=== PATIENT | female | born 1985 | race American Indian/Alaskan Native ===

== ENCOUNTER 2019-06-12 13:27 | Emergency (ER) | payer MEDICAID, OTHER ==
[2019-06-12 13:34] VITALS: BP 123/86
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
== END 2019-06-12 15:00 | disposition home or self-care (01) ==
LOC: ED 13:27
DX: S02.5XXA Fracture of tooth (traumatic), initial encounter for closed fracture (principal); K06.8 Other specified disorders of gingiva and edentulous alveolar ridge; Z79.899 Other long term (current) drug therapy; Y04.8XXA Assault by other bodily force, initial encounter; Y93.89 Activity, other specified; Y92.89 Other specified places as the place of occurrence of the external cause; Y99.8 Other external cause status
CPT/HCPCS: 70150; 99283

== ENCOUNTER 2021-06-23 19:34 | Outpatient (CLI) | payer MEDICAID ==
[2021-06-23 20:11] VITALS: BP 113/63
== END 2021-06-23 22:05 | disposition home or self-care (01) ==
LOC: TRG 19:34 → APU 19:36 → TRG 22:05
PROVIDERS: ATTEND Obstetrics & Gynecology
DX: Z34.93 Encounter for supervision of normal pregnancy, unspecified, third trimester (principal); Z3A.38 38 weeks gestation of pregnancy
CPT/HCPCS: 36415; 59025; 84112

== ENCOUNTER 2021-06-26 09:54 | Outpatient (CLI) | payer MEDICAID ==
[2021-06-26 10:08] VITALS: BP 128/68
[2021-06-26] MEDS ORDERED: BUTORPHANOL 2 MG/1 ML INJ IV STA (11:05)
[2021-06-26] MEDS: LACTATED RINGERS 1,000 ML IV SCH ×2 (11:38→12:31)
[2021-06-26 12:03] LABS: Bilirubin,Urine NEG (Negative); Blood,Urine NEG (Negative); Color,Urine Yellow (Yellow)
[2021-06-26 12:04] LABS: Mucus,Urine FEW /HPF
--- NOTE | 2021-06-26 14:19 | Ultrasound Report ---
US OB BPP wo non-stress INDICATION: Pt reports leaking fluid for past two days. TECHNIQUE: Transabdominal. COMPARISON: None available. FINDINGS: There is a single intrauterine . Heart Rate: 119 beats per minute. Position: cephalic. Amniotic Fluid Volume: normal Amniotic Fluid Index (ELENA) in cm : 11.5. Biophysical Profile: breathing movements: 0 movements:2 posture and tone:2 Qualitative amniotic fluid volume: 2 IMPRESSION: 1. Biophysical profile 6 of 8, no breathing is identified. Signer Name: Gautam Barger MD Signed: 06/26/2021 2:14 PM Workstation Name: [id number]
--- NOTE | 2021-06-26 14:25 | Ultrasound Report ---
ULTRASOUND OBSTETRIC LIMITED INDICATION / CLINICAL INFORMATION: Pt reports leaking since yesterday. TECHNIQUE: Transabdominal ultrasound imaging. COMPARISON: None available. FINDINGS: HEART RATE (beats per minute): 119 AMNIOTIC FLUID INDEX (cm) = 11.5 PRESENTATION: Cephalic. ADDITIONAL FINDINGS: The placenta is fundal/left lateral IMPRESSION: Normal ELENA measuring 11.5 Signer Name: Huey Blackman Jr, MD Signed: 06/26/2021 2:20 PM Workstation Name: [id number]
== END 2021-06-26 16:19 | disposition left against medical advice (07) ==
LOC: TRG 09:54 → APU 09:55 → TRG 16:19
PROVIDERS: ATTEND Obstetrics & Gynecology
DX: O47.1 False labor at or after 37 completed weeks of gestation (principal); Z3A.39 39 weeks gestation of pregnancy
CPT/HCPCS: 36415; 59025; 76815; 76819; 81001; 84112; 87086; 96361; 96365; 96366; 96367; J0595; J0690; J7120; 96360

== ENCOUNTER 2021-06-30 09:16 | Inpatient (IN) | payer MEDICAID ==
[2021-06-30] MEDS ORDERED: BUTORPHANOL 2 MG/1 ML INJ IV PRN (11:00)
[2021-06-30] MEDS ORDERED: LIDOCAINE (2%) 20 MG/1 ML VIAL 20 ML MDV INFILTRATI SCH (11:00)
[2021-06-30] MEDS ORDERED: miSOPROStol 200 MCG TAB PR PRN (11:00)
[2021-06-30] MEDS ORDERED: MINERAL OIL 30 ML ORAL LIQD PO PRN (11:00)
[2021-06-30] MEDS ORDERED: OXYTOCIN 10 UNIT/1 ML INJ IM PRN (11:00)
[2021-06-30] MEDS ORDERED: NALOXONE 0.4 MG/1 ML INJ IV PRN (11:00)
[2021-06-30] MEDS ORDERED: ONDANSETRON 4 MG/2 ML INJ IV PRN (11:00)
[2021-06-30] MEDS ORDERED: OXYTOCIN DRIP 30 UNITS/500 ML BAG IV SCH ×2 (11:00)
[2021-06-30] MEDS ORDERED: LOPERAMIDE 2 MG CAP PO PRN (11:00)
[2021-06-30] MEDS ORDERED: TERBUTALINE 1 MG/1 ML INJ SUB-Q PRN (11:00)
[2021-06-30] MEDS ORDERED: ePHEDrine SULFATE 50 MG/1 ML INJ IV PRN (11:00)
[2021-06-30] MEDS ORDERED: CARBOPROST TROMETHAMINE 250 MCG/1 ML INJ IM PRN (11:00)
[2021-06-30] MEDS ORDERED: METHYLERGONOVINE MALEATE 0.2 MG/ML VIAL IM PRN (11:00)
--- NOTE | 2021-06-30 11:03 | History and Physical Report ---
History of Present Illness Date of examination: 06/30/21 Date of admission: 06/30/2021 Chief complaint: Labor Pains History of present illness: Early entry to care, course complicated by N&V, non-compliance with visits, and a Hx of Cocaine, THC, and Tobacco Use, Co-managed with [facility]. Past History Past Medical History: no pertinent history Past Surgical History: no surgical history Family/Genetic History: none Social history: single, smoking (Hx of Polysubstance Abuse) - Obstetrical History Expected Date of Delivery: 07/02/21 Actual Gestation: 39 Week(s) 5 Day(s) : 12 Para: 2 Hx # Term Pregnancies: 2 Spontaneous Abortions: 4 Induced : 4 Number of Living Children: 2 #1 Gender: Female year: 2,[birth year] Birthweight: 2.948 kg Method of Delivery: Vaginal Gestational age at delivery: 40 #2 Gender: Female year: 2,[birth year] Birthweight: 2.778 kg Method of Delivery: Vaginal Gestational age at delivery: 40 Medications and Allergies Allergies Allergy/AdvReac Type Severity Reaction Status Date / Time No Known Allergies Allergy Verified 02/28/16 09:52 Home Medications Medication Instructions Recorded Confirmed Last Taken Type No Known Home Medications [No 06/26/21 06/26/21 Unknown History Reported Home Medications] Active Meds: Active Medications Carboprost Tromethamine (Carboprost Tromethamine 250 Mcg/1 Ml Inj) 250 mcg IM ONCE PRN PRN Reason: Uterine Bleeding Ephedrine Sulfate (Ephedrine Sulfate 50 Mg/1 Ml Inj) 10 mg IV Q2M PRN PRN Reason: Hypotension Oxytocin/Sodium Chloride (Pitocin/Ns 30 Unit/500ml) 30 units in 500 mls @ 2 mls/hr IV TITR YUSRA; Protocol Lactated Ringer's (Lactated Ringers) 1,000 mls @ 125 mls/hr IV DIRECT YUSRA Oxytocin/Sodium Chloride (Pitocin/Ns 30 Unit/500ml) 30 units in 500 mls @ 40 mls/hr IV TITR YUSRA; Protocol Loperamide HCl (Loperamide 2 Mg Cap) 2 mg PO ONCE PRN PRN Reason: give with Hemabate Mineral Oil (Mineral Oil 30 Ml Oral Liqd) 30 ml PO QHS PRN PRN Reason: Constipation Oxytocin (Oxytocin 10 Unit/1 Ml Inj) 10 unit IM ONCE PRN PRN Reason: Uterine Bleeding Terbutaline Sulfate (Terbutaline 1 Mg/1 Ml Inj) 0.25 mg SUB-Q ONCE PRN PRN Reason: Hyperstimulation/Hypertonicity Review of Systems All systems: negative - Vital Signs Vital signs: Vital Signs Pulse Pulse Ox 97 H 99 06/30/21 09:50 06/30/21 09:50 Temp Pulse Resp BP Pulse Ox 98.6 F 91 H 18 133/82 99 06/30/21 09:51 06/30/21 10:55 06/30/21 09:51 06/30/21 09:51 06/30/21 10:55 - Physical Exam Breasts: Positive: normal Cardiovascular: Regular rate Lungs: Positive: Clear to auscultation, Normal air movement Abdomen: Positive: normal appearance, soft, normal bowel sounds Genitourinary (Female): Positive: normal external genitalia, normal perenium Vagina: Positive: normal moisture Uterus: Positive: enlarged Anus/Rectum: Positive: normal perianal skin - Obstetrical FHR: category 1 Uterine Contraction Monitor Mode: External Cervical Dilatation: 3 Cervical Effacement Percentage: 60 station: -3 Uterine Contraction Pattern: Regular Uterine Tone Measurement Phase: Resting Uterine Contraction Intensity: Moderate Results All other labs normal. Assessment and Plan A: IUP @ 39 5/7 Weeks Category I Tracing Early Labor Maternal Obesity Hx of Polysubtance Abuse GBS Negative P: Admit to L&D per Routine Orders UDS Pitocin Augmentation
[2021-06-30 12:38] LABS: Hematocrit 32.8 % (30.3-42.9); Hemoglobin 10.7 gm/dl (10.1-14.3); Mean Corpuscular HGB Conc 33 % (30-34); Mean Corpuscular Volume 92 fl (79-97); Platelet Count 209 K/mm3 (140-440); Red Blood Count 3.55 M/mm3 (3.65-5.03); Red Cell Distribution Width 14.8 % (13.2-15.2)
[2021-06-30 12:48] LABS: Amphetamine Screen,Urine Negative; Benzodiazepines Screen,Urine Negative; Cocaine Screen,Urine Negative; Methadone Screen,Urine Negative; Opiate Screen,Urine Negative
[2021-06-30] MEDS: LACTATED RINGERS 1,000 ML IV SCH ×2 (13:39→15:47)
[2021-06-30 13:47] LABS: Cannabinoid Screen,Urine Positive
[2021-06-30] MEDS ORDERED: NALOXONE 2 MG/2 ML INJ IV PRN (15:00)
[2021-06-30] MEDS ORDERED: fentaNYL-BUPIV 2 MCG/ML-0.125% 200 MCG/100 ML BAG EPIDURAL SCH (15:00)
--- NOTE | 2021-06-30 15:51 | Anesthesia Consultation ---
Anesthesia Consult and Med Hx Date of service: 06/30/21 - Airway Anesthetic Teeth Evaluation: Poor ROM Head & Neck: Adequate Mental/Hyoid Distance: Adequate Mallampati Class: Class II Intubation Access Assessment: Probably Good - Pulmonary Exam CTA: Yes - Cardiac Exam Cardiac Exam: RRR - Pre-Operative Health Status ASA Pre-Surgery Classification: ASA2 Proposed Anesthetic Plan: Epidural - Pulmonary Hx Smoking: No Hx Asthma: No Hx Respiratory Symptoms: No SOB: No COPD: No Home Oxygen Therapy: No Hx Pneumonia: No Hx Sleep Apnea: No - Cardiovascular System Hx Hypertension: Yes (GHTN 2014) Hx Coronary Artery Disease: No Hx Heart Attack/AMI: No Hx Angina: No Hx Percutaneous Transluminal Coronary Angioplasty (PTCA): No Hx Cardia Arrhythmia: No Hx Pacemaker: No Hx Internal Defibrillator: No Hx Valvular Heart Disease: No Hx Heart Murmur: No Hx Peripheral Vascular Disease: No - Central Nervous System Hx Neuromuscular Disorder: No Hx Seizures: No CVA: No Hx Back Pain: Yes Hx Psychiatric Problems: No - Gastrointestinal Hx Ulcer: No Hx Gastroesophageal Reflux Disease: Yes - Endocrine Hx Renal Disease: No (kidney infections) Hx End Stage Renal Disease: No Hx Cirrhosis: No Hx Liver Disease: No Hx Insulin Dependent Diabetes: No Hx Non-Insulin Dependent Diabetes: No Hx Thyroid Disease: No Hx Hypothyroidism: No Hx Hyperthyroidism: No - Hematic Hx Anemia: No Hx Sickle Cell Disease: No - Other Systems Hx Alcohol Use: No Hx Substance Use: No Hx Cancer: No Hx Obesity: Yes
[2021-06-30] MEDS: ePHEDrine SULFATE 50 MG/1 ML INJ IV PRN ×2 (15:54→16:25)
--- NOTE | 2021-06-30 15:55 | Progress Note ---
Labor Epidural - Labor Epidural Start Time: 15:10 Stop Time: 15:25 Performed by:: LUIS ENRIQUE PINEDA Procedure: Patient is requesting a laboring epidural for laboring pain. Patient IDed, H&P reviewed, all questions and concerns were answered, and consent was signed. Timeout was performed at bedside. Patient in sitting position. Sterile prep and drape was performed. [3] ml of 1% lidocaine skin wheal at L[3]- L [4]. 18- gauge Tuohy epidural needle was advanced to loss of resistance with saline technique 8cm. Negative CSF negative blood. Epidural catheter advanced to [12] centimeters. [NEGATIVE] Aspiration [NEGATIVE] test dose. Sterile dressing applied. Patient tolerated procedure.
--- NOTE | 2021-06-30 17:03 | Progress Note ---
Assessment and Plan A: IUP @ 39 5/7 Weeks Category I Tracing Early Labor Maternal Obesity Hx of Polysubtance Abuse GBS Negative P: Continue Pitocin Augmentation Subjective - Subjective Date of service: 06/30/21 Interval history: Early entry to care, course complicated by N&V, non-compliance with visits, and a Hx of Cocaine, THC, and Tobacco Use, Co-managed with [facility]. Patient reports: movement normal, contractions, other (Resting well under epidural anesthesia) Objective - Vital Signs Vital Signs: Vital Signs - 12hr 06/30/21 06/30/21 06/30/21 09:50 09:51 09:52 Temperature 98.6 F Pulse Rate 97 H 104 H 43 L Respiratory 18 Rate Blood Pressure 133/82 Blood Pressure 133/82 [Right] O2 Sat by Pulse 99 99 72 L Oximetry 06/30/21 06/30/21 06/30/21 09:55 10:00 10:05 Temperature Pulse Rate 99 H 103 H 95 H Respiratory Rate Blood Pressure Blood Pressure [Right] O2 Sat by Pulse 99 99 98 Oximetry 06/30/21 06/30/21 06/30/21 10:10 10:15 10:20 Temperature Pulse Rate 96 H 94 H 85 Respiratory Rate Blood Pressure Blood Pressure [Right] O2 Sat by Pulse 99 99 100 Oximetry 06/30/21 06/30/21 06/30/21 10:55 11:00 12:11 Temperature Pulse Rate 91 H 95 H 90 Respiratory Rate Blood Pressure Blood Pressure [Right] O2 Sat by Pulse 99 100 99 Oximetry 06/30/21 06/30/21 06/30/21 12:16 12:21 12:26 Temperature Pulse Rate 98 H 94 H 95 H Respiratory Rate Blood Pressure Blood Pressure [Right] O2 Sat by Pulse 100 99 99 Oximetry 06/30/21 06/30/21 06/30/21 12:31 12:36 12:41 Temperature Pulse Rate 97 H 85 100 H Respiratory Rate Blood Pressure Blood Pressure [Right] O2 Sat by Pulse 99 99 100 Oximetry 06/30/21 06/30/21 06/30/21 12:46 12:51 12:56 Temperature Pulse Rate 88 93 H 76 Respiratory Rate Blood Pressure Blood Pressure [Right] O2 Sat by Pulse 100 99 100 Oximetry 06/30/21 06/30/21 06/30/21 13:01 13:06 13:11 Temperature Pulse Rate 80 82 81 Respiratory Rate Blood Pressure Blood Pressure [Right] O2 Sat by Pulse 99 99 99 Oximetry 06/30/21 06/30/21 06/30/21 13:16 13:21 14:17 Temperature 98.7 F Pulse Rate 82 95 H 87 Respiratory 16 Rate Blood Pressure 138/63 Blood Pressure 138/63 [Right] O2 Sat by Pulse 99 100 100 Oximetry 06/30/21 06/30/21 06/30/21 14:22 14:27 14:32 Temperature Pulse Rate 89 81 81 Respiratory Rate Blood Pressure Blood Pressure [Right] O2 Sat by Pulse 100 99 99 Oximetry 06/30/21 06/30/21 06/30/21 14:37 14:42 14:47 Temperature Pulse Rate 80 93 H 89 Respiratory Rate Blood Pressure Blood Pressure [Right] O2 Sat by Pulse 99 99 99 Oximetry 06/30/21 06/30/21 06/30/21 14:50 14:52 14:57 Temperature Pulse Rate 73 82 71 Respiratory Rate Blood Pressure Blood Pressure [Right] O2 Sat by Pulse 87 100 100 Oximetry 06/30/21 06/30/21 06/30/21 15:02 15:07 15:12 Temperature Pulse Rate 80 89 94 H Respiratory Rate Blood Pressure Blood Pressure [Right] O2 Sat by Pulse 100 100 100 Oximetry 06/30/21 06/30/21 06/30/21 15:17 15:18 15:20 Temperature Pulse Rate 86 90 92 H Respiratory Rate Blood Pressure 130/60 121/58 Blood Pressure [Right] O2 Sat by Pulse 100 Oximetry 06/30/21 06/30/21 06/30/21 15:22 15:24 15:26 Temperature Pulse Rate 81 86 83 Respiratory Rate Blood Pressure 126/66 120/60 132/64 Blood Pressure [Right] O2 Sat by Pulse 100 Oximetry 06/30/21 06/30/21 06/30/21 15:27 15:28 15:32 Temperature Pulse Rate 85 93 H 84 Respiratory Rate Blood Pressure 122/65 Blood Pressure [Right] O2 Sat by Pulse 100 100 Oximetry 06/30/21 06/30/21 06/30/21 15:34 15:36 15:37 Temperature Pulse Rate 74 85 80 Respiratory Rate Blood Pressure 127/66 121/62 Blood Pressure [Right] O2 Sat by Pulse 100 Oximetry 06/30/21 06/30/2106/30/21 15:38 15:40 15:42 Temperature Pulse Rate 75 88 77 Respiratory Rate Blood Pressure 118/55 119/57 119/55 Blood Pressure [Right] O2 Sat by Pulse 100 Oximetry 06/30/21 06/30/21 06/30/21 15:44 15:46 15:47 Temperature Pulse Rate 76 82 89 Respiratory Rate Blood Pressure 124/60 120/56 Blood Pressure [Right] O2 Sat by Pulse 100 Oximetry 06/30/21 06/30/21 06/30/21 15:48 15:50 15:52 Temperature Pulse Rate 85 73 81 Respiratory Rate Blood Pressure 111/58 119/58 117/58 Blood Pressure [Right] O2 Sat by Pulse 100 Oximetry 06/30/21 06/30/21 06/30/21 15:54 15:56 15:57 Temperature Pulse Rate 75 81 78 Respiratory Rate Blood Pressure 114/58 124/60 Blood Pressure [Right] O2 Sat by Pulse 100 Oximetry 06/30/21 06/30/21 06/30/21 15:58 16:02 16:07 Temperature Pulse Rate 84 79 81 Respiratory Rate Blood Pressure 125/64 Blood Pressure [Right] O2 Sat by Pulse 100 100 Oximetry 06/30/21 06/30/21 06/30/21 16:12 16:15 16:17 Temperature Pulse Rate 73 82 80 Respiratory Rate Blood Pressure 113/56 Blood Pressure [Right] O2 Sat by Pulse 100 99 Oximetry 06/30/21 06/30/21 06/30/21 16:22 16:27 16:31 Temperature Pulse Rate 74 85 83 Respiratory Rate Blood Pressure 126/72 Blood Pressure [Right] O2 Sat by Pulse 99 100 Oximetry 06/30/21 06/30/21 06/30/21 16:32 16:37 16:42 Temperature Pulse Rate 69 70 66 Respiratory Rate Blood Pressure Blood Pressure [Right] O2 Sat by Pulse 100 100 100 Oximetry 06/30/21 06/30/21 06/30/21 16:45 16:47 16:52 Temperature Pulse Rate 74 80 72 Respiratory Rate Blood Pressure 106/53 Blood Pressure [Right] O2 Sat by Pulse 100 100 Oximetry 06/30/21 16:57 Temperature Pulse Rate 89 Respiratory Rate Blood Pressure Blood Pressure [Right] O2 Sat by Pulse 100 Oximetry - Exam Breasts: normal Cardiovascular: Regular rate Lungs: Clear to auscultation, Normal air movement Abdomen: Present: normal appearance, soft, normal bowel sounds Uterus: Present: normal, firm, fundal height below umbilicus FHR: category 1 Uterine Contraction Monitor Mode: External Cervical Dilatation: 3 Cervical Effacement Percentage: 60 station: -3 Uterine Contraction Pattern: Regular Uterine Tone Measurement Phase: Resting Uterine Contraction Intensity: Moderate Extremities: normal - Labs Labs: Abnormal Labs 06/30/21 12:33 RBC 3.55 L Laboratory Results - last 24 hr 06/30/21 06/30/21 06/30/21 12:33 12:33 12:33 WBC 7.0 RBC 3.55 L Hgb 10.7 Hct 32.8 MCV 92 MCH 30 MCHC 33 RDW 14.8 Plt Count 209 Urine Opiates Screen Urine Methadone Screen Ur Barbiturates Screen Ur Phencyclidine Scrn Ur Amphetamines Screen U Benzodiazepines Scrn Urine Cocaine Screen U Marijuana (THC) Screen Drugs of Abuse Note Syphilis IgG Antibody Nonreactive Blood Type O POSITIVE Antibody Screen Negative 06/30/21 12:33 WBC RBC Hgb Hct MCV MCH MCHC RDW Plt Count Urine Opiates Screen Negative Urine Methadone Screen Negative Ur Barbiturates Screen Negative Ur Phencyclidine Scrn Negative Ur Amphetamines Screen Negative U Benzodiazepines Scrn Negative Urine Cocaine Screen Negative U Marijuana (THC) Screen Positive Drugs of Abuse Note Disclamer Syphilis IgG Antibody Blood Type Antibody Screen
--- NOTE | 2021-07-01 00:12 | Progress Note ---
Assessment and Plan A: IUP @ 39 5/7 Weeks Category II Wondering Baseline Protracted Labor Maternal Obesity Hx of Polysubtance Abuse GBS Negative P: Pitocin Discontinued Multiple Maternal Position Changes O2 Mask/Fluid Bolus AROM and Internals x2 Per Dr. Zarate's Request Dr. Zarate Consulted for Delivery by : States he is en route to hospital Subjective - Subjective Date of service: 07/01/21 Interval history: Early entry to care, course complicated by N&V, non-compliance with visits, and a Hx of Cocaine, THC, and Tobacco Use, Co-managed with [facility]. Patient reports: movement normal, other (States she is concerned about her baby's heartrate and is requesting a ) Objective - Vital Signs Vital Signs: Vital Signs - 12hr 06/30/21 06/30/21 06/30/21 12:11 12:16 12:21 Temperature Pulse Rate 90 98 H 94 H Respiratory Rate Blood Pressure Blood Pressure [Right] O2 Sat by Pulse 99 100 99 Oximetry 06/30/21 06/30/21 06/30/21 12:26 12:31 12:36 Temperature Pulse Rate 95 H 97 H 85 Respiratory Rate Blood Pressure Blood Pressure [Right] O2 Sat by Pulse 99 99 99 Oximetry 06/30/21 06/30/21 06/30/21 12:41 12:46 12:51 Temperature Pulse Rate 100 H 88 93 H Respiratory Rate Blood Pressure Blood Pressure [Right] O2 Sat by Pulse 100 100 99 Oximetry 06/30/21 06/30/21 06/30/21 12:56 13:01 13:06 Temperature Pulse Rate 76 80 82 Respiratory Rate Blood Pressure Blood Pressure [Right] O2 Sat by Pulse 100 99 99 Oximetry 06/30/21 06/30/21 06/30/21 13:11 13:16 13:21 Temperature Pulse Rate 81 82 95 H Respiratory Rate Blood Pressure Blood Pressure [Right] O2 Sat by Pulse 99 99 100 Oximetry 06/30/21 06/30/21 06/30/21 14:17 14:22 14:27 Temperature 98.7 F Pulse Rate 87 89 81 Respiratory 16 Rate Blood Pressure 138/63 Blood Pressure 138/63 [Right] O2 Sat by Pulse 100 100 99 Oximetry 06/30/21 06/30/21 06/30/21 14:32 14:37 14:42 Temperature Pulse Rate 81 80 93 H Respiratory Rate Blood Pressure Blood Pressure [Right] O2 Sat by Pulse 99 99 99 Oximetry 06/30/21 06/30/21 06/30/21 14:47 14:50 14:52 Temperature Pulse Rate 89 73 82 Respiratory Rate Blood Pressure Blood Pressure [Right] O2 Sat by Pulse 99 87 100 Oximetry 06/30/21 06/30/21 06/30/21 14:57 15:02 15:07 Temperature Pulse Rate 71 80 89 Respiratory Rate Blood Pressure Blood Pressure [Right] O2 Sat by Pulse 100 100 100 Oximetry 06/30/21 06/30/21 06/30/21 15:12 15:17 15:18 Temperature Pulse Rate 94 H 86 90 Respiratory Rate Blood Pressure 130/60 Blood Pressure [Right] O2 Sat by Pulse 100 100 Oximetry 06/30/21 06/30/21 06/30/21 15:20 15:22 15:24 Temperature Pulse Rate 92 H 81 86 Respiratory Rate Blood Pressure 121/58 126/66 120/60 Blood Pressure [Right] O2 Sat by Pulse 100 Oximetry 06/30/21 06/30/21 06/30/21 15:26 15:27 15:28 Temperature Pulse Rate 83 85 93 H Respiratory Rate Blood Pressure 132/64 122/65 Blood Pressure [Right] O2 Sat by Pulse 100 Oximetry 06/30/21 06/30/21 06/30/21 15:32 15:34 15:36 Temperature Pulse Rate 84 74 85 Respiratory Rate Blood Pressure 127/66 121/62 Blood Pressure [Right] O2 Sat by Pulse 100 Oximetry 06/30/21 06/30/21 06/30/21 15:37 15:38 15:40 Temperature Pulse Rate 80 75 88 Respiratory Rate Blood Pressure 118/55 119/57 Blood Pressure [Right] O2 Sat by Pulse 100 Oximetry 06/30/21 06/30/21 06/30/21 15:42 15:44 15:46 Temperature Pulse Rate 77 76 82 Respiratory Rate Blood Pressure 119/55 124/60 120/56 Blood Pressure [Right] O2 Sat by Pulse 100 Oximetry 06/30/21 06/30/21 06/30/21 15:47 15:48 15:50 Temperature Pulse Rate 89 85 73 Respiratory Rate Blood Pressure 111/58 119/58 Blood Pressure [Right] O2 Sat by Pulse 100 Oximetry 06/30/21 06/30/2106/30/21 15:52 15:54 15:56 Temperature Pulse Rate 81 75 81 Respiratory Rate Blood Pressure 117/58 114/58 124/60 Blood Pressure [Right] O2 Sat by Pulse 100 Oximetry 06/30/21 06/30/21 06/30/21 15:57 15:58 16:02 Temperature Pulse Rate 78 84 79 Respiratory Rate Blood Pressure 125/64 Blood Pressure [Right] O2 Sat by Pulse 100 100 Oximetry 06/30/21 06/30/21 06/30/21 16:07 16:12 16:15 Temperature Pulse Rate 81 73 82 Respiratory Rate Blood Pressure 113/56 Blood Pressure [Right] O2 Sat by Pulse 100 100 Oximetry 06/30/21 06/30/21 06/30/21 16:17 16:22 16:27 Temperature Pulse Rate 80 74 85 Respiratory Rate Blood Pressure Blood Pressure [Right] O2 Sat by Pulse 99 99 100 Oximetry 06/30/21 06/30/21 06/30/21 16:31 16:32 16:37 Temperature Pulse Rate 83 69 70 Respiratory Rate Blood Pressure 126/72 Blood Pressure [Right] O2 Sat by Pulse 100 100 Oximetry 06/30/21 06/30/21 06/30/21 16:42 16:45 16:47 Temperature Pulse Rate 66 74 80 Respiratory Rate Blood Pressure 106/53 Blood Pressure [Right] O2 Sat by Pulse 100 100 Oximetry 06/30/21 06/30/21 06/30/21 16:52 16:57 17:01 Temperature Pulse Rate 72 89 74 Respiratory Rate Blood Pressure 119/56 Blood Pressure [Right] O2 Sat by Pulse 100 100 Oximetry 06/30/21 06/30/21 06/30/21 17:02 17:07 17:12 Temperature Pulse Rate 79 83 78 Respiratory Rate Blood Pressure Blood Pressure [Right] O2 Sat by Pulse 100 100 100 Oximetry 06/30/21 06/30/21 06/30/21 17:17 17:22 17:27 Temperature Pulse Rate 84 76 76 Respiratory Rate Blood Pressure Blood Pressure [Right] O2 Sat by Pulse 100 100 100 Oximetry 06/30/21 06/30/21 06/30/21 17:30 17:32 17:37 Temperature Pulse Rate 92 H 78 77 Respiratory Rate Blood Pressure 111/59 Blood Pressure [Right] O2 Sat by Pulse 100 100 Oximetry 06/30/21 06/30/2106/30/21 17:42 17:45 17:47 Temperature Pulse Rate 73 99 H 71 Respiratory Rate Blood Pressure 105/57 Blood Pressure [Right] O2 Sat by Pulse 100 100 Oximetry 06/30/21 06/30/21 06/30/21 17:52 17:57 18:01 Temperature Pulse Rate 85 90 99 H Respiratory Rate Blood Pressure 108/58 Blood Pressure [Right] O2 Sat by Pulse 100 100 Oximetry 06/30/21 06/30/21 06/30/21 18:02 18:07 18:12 Temperature Pulse Rate 102 H 75 81 Respiratory Rate Blood Pressure Blood Pressure [Right] O2 Sat by Pulse 100 100 100 Oximetry 06/30/21 06/30/21 06/30/21 18:16 18:17 18:22 Temperature Pulse Rate 81 85 69 Respiratory Rate Blood Pressure 109/58 Blood Pressure [Right] O2 Sat by Pulse 100 100 Oximetry 06/30/21 06/30/21 06/30/21 18:27 18:32 18:37 Temperature Pulse Rate 116 H 97 H 99 H Respiratory Rate Blood Pressure 109/58 Blood Pressure [Right] O2 Sat by Pulse 100 100 100 Oximetry 06/30/21 06/30/21 06/30/21 18:42 18:47 18:52 Temperature Pulse Rate 81 78 85 Respiratory Rate Blood Pressure Blood Pressure [Right] O2 Sat by Pulse 100 100 100 Oximetry 06/30/21 06/30/21 06/30/21 18:57 19:00 19:02 Temperature Pulse Rate 104 H 71 96 H Respiratory Rate Blood Pressure 92/44 Blood Pressure [Right] O2 Sat by Pulse 100 100 Oximetry 06/30/21 06/30/21 06/30/21 19:07 19:12 19:16 Temperature Pulse Rate 87 87 77 Respiratory Rate Blood Pressure 106/54 Blood Pressure [Right] O2 Sat by Pulse 100 100 Oximetry 06/30/21 06/30/21 06/30/21 19:17 19:22 19:27 Temperature Pulse Rate 92 H 110 H 108 H Respiratory Rate Blood Pressure Blood Pressure [Right] O2 Sat by Pulse 100 100 100 Oximetry 06/30/21 06/30/21 06/30/21 19:31 19:32 19:37 Temperature Pulse Rate 85 89 72 Respiratory Rate Blood Pressure 106/55 Blood Pressure [Right] O2 Sat by Pulse 100 100 Oximetry 06/30/21 06/30/21 06/30/21 19:42 19:45 19:47 Temperature Pulse Rate 68 93 H 68 Respiratory Rate Blood Pressure 97/52 Blood Pressure [Right] O2 Sat by Pulse 100 100 Oximetry 06/30/21 06/30/21 06/30/21 19:52 19:57 20:00 Temperature Pulse Rate 68 73 80 Respiratory Rate Blood Pressure 101/55 Blood Pressure [Right] O2 Sat by Pulse 100 100 Oximetry 06/30/21 06/30/21 06/30/21 20:02 20:07 20:12 Temperature Pulse Rate 72 71 86 Respiratory Rate Blood Pressure Blood Pressure [Right] O2 Sat by Pulse 100 100 100 Oximetry 06/30/21 06/30/21 06/30/21 20:17 20:22 20:27 Temperature Pulse Rate 99 H 81 104 H Respiratory Rate Blood Pressure 114/58 Blood Pressure [Right] O2 Sat by Pulse 100 100 100 Oximetry 06/30/21 06/30/21 06/30/21 20:32 20:37 20:42 Temperature Pulse Rate 75 79 90 Respiratory Rate Blood Pressure 119/62 Blood Pressure [Right] O2 Sat by Pulse 100 100 100 Oximetry 06/30/21 06/30/21 06/30/21 20:47 20:52 20:56 Temperature Pulse Rate 74 85 69 Respiratory Rate Blood Pressure 104/53 Blood Pressure [Right] O2 Sat by Pulse 97 100 Oximetry 06/30/21 06/30/21 06/30/21 20:57 21:02 21:07 Temperature Pulse Rate 66 76 77 Respiratory Rate Blood Pressure Blood Pressure [Right] O2 Sat by Pulse 100 100 100 Oximetry 06/30/21 06/30/21 06/30/21 21:12 21:17 21:22 Temperature Pulse Rate 86 83 74 Respiratory Rate Blood Pressure Blood Pressure [Right] O2 Sat by Pulse 100 100 100 Oximetry 06/30/21 06/30/21 06/30/21 21:27 21:32 21:37 Temperature Pulse Rate 84 78 89 Respiratory Rate Blood Pressure Blood Pressure [Right] O2 Sat by Pulse 100 100 99 Oximetry 06/30/21 06/30/21 06/30/21 21:42 21:47 21:48 Temperature Pulse Rate 95 H 90 82 Respiratory Rate Blood Pressure 112/58 Blood Pressure [Right] O2 Sat by Pulse 100 95 89 Oximetry 06/30/21 06/30/21 06/30/21 21:52 21:57 22:02 Temperature Pulse Rate 103 H 68 81 Respiratory Rate Blood Pressure Blood Pressure [Right] O2 Sat by Pulse 99 100 100 Oximetry 06/30/21 06/30/21 06/30/21 22:07 22:12 22:17 Temperature Pulse Rate 68 75 80 Respiratory Rate Blood Pressure 113/65 Blood Pressure [Right] O2 Sat by Pulse 100 99 100 Oximetry 06/30/21 06/30/21 06/30/21 22:22 22:27 22:32 Temperature Pulse Rate 81 78 90 Respiratory Rate Blood Pressure Blood Pressure [Right] O2 Sat by Pulse 100 100 100 Oximetry 06/30/21 06/30/21 06/30/21 22:37 22:42 22:47 Temperature Pulse Rate 115 H 92 H 101 H Respiratory Rate Blood Pressure 155/70 Blood Pressure [Right] O2 Sat by Pulse 100 100 100 Oximetry 06/30/21 06/30/21 06/30/21 22:52 22:57 22:58 Temperature Pulse Rate 125 H 93 H 48 L Respiratory Rate Blood Pressure Blood Pressure [Right] O2 Sat by Pulse 100 92 80 L Oximetry 06/30/21 06/30/21 06/30/21 23:03 23:08 23:12 Temperature Pulse Rate 94 H 77 68 Respiratory Rate Blood Pressure 102/54 Blood Pressure [Right] O2 Sat by Pulse 100 100 Oximetry 06/30/21 06/30/21 06/30/21 23:13 23:18 23:23 Temperature Pulse Rate 89 77 69 Respiratory Rate Blood Pressure Blood Pressure [Right] O2 Sat by Pulse 100 100 100 Oximetry 06/30/21 06/30/21 06/30/21 23:28 23:33 23:38 Temperature Pulse Rate 86 82 71 Respiratory Rate Blood Pressure Blood Pressure [Right] O2 Sat by Pulse 100 100 100 Oximetry 06/30/21 06/30/21 06/30/21 23:42 23:43 23:48 Temperature Pulse Rate 65 77 72 Respiratory Rate Blood Pressure 110/58 Blood Pressure [Right] O2 Sat by Pulse 100 100 Oximetry 06/30/21 06/30/21 07/01/21 23:53 23:58 00:03 Temperature Pulse Rate 72 72 86 Respiratory Rate Blood Pressure Blood Pressure [Right] O2 Sat by Pulse 100 100 100 Oximetry - Exam Breasts: normal Cardiovascular: Regular rate Lungs: Clear to auscultation, Normal air movement Abdomen: Present: normal appearance, soft, normal bowel sounds Uterus: Present: normal, firm, fundal height above umbilicus FHR: category 2 FHR comments: FHR: ranging from 120s to 100, varability ranging from marked to decreased, +isolated accels Uterine Contraction Monitor Mode: Internal Cervical Dilatation: 3 (Scant amount of bloody fluid upon AROM at 2300 on 07/01/2021) Cervical Effacement Percentage: 50 station: -3 Uterine Contraction Frequency (min): 5 Uterine Contraction Pattern: Irregular Uterine Tone Measurement Phase: Resting Uterine Contraction Intensity: Mild Extremities: normal - Labs Labs: Abnormal Labs 06/30/21 12:33 RBC 3.55 L Laboratory Results - last 24 hr 06/30/21 06/30/21 06/30/21 12:33 12:33 12:33 WBC 7.0 RBC 3.55 L Hgb 10.7 Hct 32.8 MCV 92 MCH 30 MCHC 33 RDW 14.8 Plt Count 209 Urine Opiates Screen Urine Methadone Screen Ur Barbiturates Screen Ur Phencyclidine Scrn Ur Amphetamines Screen U Benzodiazepines Scrn Urine Cocaine Screen U Marijuana (THC) Screen Drugs of Abuse Note Syphilis IgG Antibody Nonreactive Blood Type O POSITIVE Antibody Screen Negative 06/30/21 12:33 WBC RBC Hgb Hct MCV MCH MCHC RDW Plt Count Urine Opiates Screen Negative Urine Methadone Screen Negative Ur Barbiturates Screen Negative Ur Phencyclidine Scrn Negative Ur Amphetamines Screen Negative U Benzodiazepines Scrn Negative Urine Cocaine Screen Negative U Marijuana (THC) Screen Positive Drugs of Abuse Note Disclamer Syphilis IgG Antibody Blood Type Antibody Screen
[2021-07-01] MEDS ORDERED: BICITRA ORAL LIQD 30ML PO ONE (00:16)
[2021-07-01] MEDS ORDERED: ceFAZolin/Water 2 GM/20 ML 2 GM/20 ML SYRINGE IV NR (00:18)
[2021-07-01] MEDS ORDERED: FAMOTIDINE 20 MG/2 ML INJ IV ONE (00:18)
[2021-07-01] MEDS ORDERED: ONDANSETRON 4 MG/2 ML INJ IV PRN ×2 (00:21→02:38)
[2021-07-01] MEDS ORDERED: HYDROmorphone 1 MG/1 ML INJ IV PRN (00:21)
[2021-07-01] MEDS ORDERED: NALOXONE 0.4 MG/1 ML INJ IV PRN ×2 (00:21→02:38)
--- NOTE | 2021-07-01 00:21 | Anesthesia Day of Surgery ---
Anesthesia Day of Surgery - Day of Surgery Patient Examined: Yes Patient H&P Reviewed: Yes Patient is NPO: Yes Beta Blockers: No Cardiac Clearance: No Pulmonary Clearance: No Jose M's Test: Negative
[2021-07-01] MEDS ORDERED: LIDOCAINE 2%/EPINEPHRINE 1:200,000 VIAL (20 ML) INFILTRATI ONE (00:29)
[2021-07-01] MEDS ORDERED: METOCLOPRAMIDE 10 MG/2 ML INJ IV NR (01:00)
[2021-07-01] MEDS ORDERED: WATER FOR IRRIG STERILE 1,500 ML BOTTLE IR ONE (01:09)
[2021-07-01] MEDS ORDERED: SODIUM CHLORIDE 0.9% IRR 1,500 ML BOTTLE IR ONE (01:09)
[2021-07-01] MEDS ORDERED: ceFAZolin/STERILE WATER 2 GM/20 ML SYRINGE IV ONE (01:09)
[2021-07-01] MEDS ORDERED: PHENYLEPHRINE/NS 1,000 MCG/10 ML SYRINGE (OR USE) IV ONE (01:17)
[2021-07-01] MEDS ORDERED: ONDANSETRON 4 MG/2 ML INJ ONE ×2 (01:24→01:25)
[2021-07-01] MEDS ORDERED: NalbUPHINE 10 MG/1 ML INJ IV PRN (01:35)
[2021-07-01] MEDS ORDERED: MINERAL OIL 30 ML ORAL LIQD PO PRN (01:35)
[2021-07-01] MEDS ORDERED: ACETAMINOPHEN 325 MG TAB PO PRN ×2 (01:35→02:38)
[2021-07-01] MEDS ORDERED: LIDOCAINE (2%) 20 MG/1 ML VIAL 20 ML MDV INFILTRATI ONE (01:35)
[2021-07-01] MEDS ORDERED: dexAMETHasone 20 MG/5 ML VIAL ONE (01:40)
[2021-07-01] MEDS ORDERED: BUPIVACAINE/PF (0.25%) 2.5 MG/ML 30 ML VIAL INFILTRATI ONE ×2 (01:40)
[2021-07-01] MEDS ORDERED: LACTATED RINGERS 1,000 ML IV SCH (01:45)
[2021-07-01] MEDS ORDERED: KETOROLAC 30 MG/1 ML INJ ONE (02:06)
[2021-07-01] MEDS ORDERED: oxyCODONE /ACETAMINOPHEN 5-325MG TAB PO PRN (02:38)
[2021-07-01] MEDS ORDERED: HYDROCORTISONE 25 MG RECTAL SUPP PR PRN (02:38)
[2021-07-01] MEDS ORDERED: LANOLIN/ZINC/DIMETHICONE (LANSINOH) 7 GM TP PRN (02:38)
[2021-07-01] MEDS ORDERED: WITCH HAZEL/ GLYCERIN PAD TP PRN (02:38)
[2021-07-01] MEDS ORDERED: MAGNESIUM HYDROXIDE (MOM) ORAL LIQD UDC PO PRN (02:38)
[2021-07-01] MEDS ORDERED: SENNOSIDES 8.6 MG TAB PO PRN (02:38)
[2021-07-01] MEDS ORDERED: PROMETHAZINE 25 MG RECT SUPP PR PRN (02:38)
[2021-07-01] MEDS ORDERED: MORPHINE 4 MG/1 ML INJ IV PRN (02:38)
--- NOTE | 2021-07-01 02:43 | Procedure Note ---
OB Delivery Note - Delivery Date of Delivery: 07/01/21 Surgeon: GIOVANI PEÑA JR Estimated blood loss: other (797 + 200 PPH QBL) - Section Preop diagnosis: nonreassuring FHR tracing Postop diagnosis: same section procedure: section, primary low transverse Disposition: PACU Complications: none Narrative: Indication: 35-year-old G 12 P2 at 39 weeks and 3 days complicated by non- compliance with visits, and a Hx of Cocaine, THC, and Tobacco Use, Co- managed with [facility] presenting in early labor now failed secondary to nonreassuring heart tones and inability to induce for primary . Findings: Normal uterus, tubes and ovaries. Clear fluid. No nuchal cord. Delivery of male infant at 0150 Weight 3110g Height 21 in APGARS 8/9 EBL 797 + 200 cc PPH QBL IVF 900 cc UOP 100 cc Procedure: Patient was taken to the operating room prepped and draped in the usual sterile fashion. Pfannenstiel skin incision was made and carried down to the underlying fascia. Fascia was incised and the incision was distended bila terally. Rectus fascia was dissected off the rectus muscle superiorly and inferiorly. Peritoneum was identified and entered. Peritoneal incision extended superiorly and inferiorly. The bladder was visualized. The bladder blade was placed. Uterine hysterotomy incision was made and extended bilaterally. The baby was delivered in the typical vertex fashion. Baby was bulb suction at delivery. The cord was cut and clamped and handed off to the team. The placenta was delivered spontaneously. The uterus was exteriorized and cleared of all clots and debris. Uterine incision was closed with a 0 Vicryl in a running locked fashion. Good hemostasis was noted after [id number] sutures applied to the uterine incision x3. Surgicel powder was applied to the uterine incisional base to provide hemostasis. The urine was noted to be clear. Uterus, tubes, and ovaries were returned to the abdominal cavity. Bilateral gutters were cleared and the abdomen and pelvis were irrigated. Good hemostasis noted. Attention was directed towards the rectus fascia which was reapproximated with 0 PDS in a running fashion. The subcutaneous tissue was irrigated and reapproximated with 2-0 Vicryl in a running fashion. Skin was closed with a 4-0 Vicryl in a subcuticular fashion. The procedure was completed and the patient tolerated the procedure well. All instruments and lap counts were correct x2. - A at 1 minute: 8 at 5 minutes: 9 Gender: Male
--- NOTE | 2021-07-01 02:55 | Progress Note ---
Spinal Anesthesia Block - Spinal Anesthesia Block Start Time: 02:40 Stop Time: 02:43 Performed by:: LUIS ENRIQUE PINEDA Procedure: Patient consented for TAP block for post surgical pain management. Patient identified, monitors placed, and time out performed. TAP identified bilaterally via ultrasound. Skin prepped bilaterally with [chlorhexidine] and [22g stimuplex] needle advanced to the TAP. [Marcaine 0.25% 35ml] injected under ultrasound guidance on the [left] side. [Marcaine 0.25% 35ml] injected under ultrasound guidance on the [right] side. Negative aspiration every 5mL, No change in heart rate or rhythm. Patient tolerated the procedure well. No apparent complications seen.
[2021-07-01] MEDS ORDERED: OXYTOCIN DRIP 30 UNITS/500 ML BAG IV SCH (03:00)
[2021-07-01] MEDS: HYDROmorphone 1 MG/1 ML INJ IV PRN ×2 (04:00→09:03)
--- NOTE | 2021-07-01 08:30 | Post Anesthesia Evaluation ---
- Post Anesthesia Evaluation Patient Participated: Yes Airway Patent: Yes Stable Respiratory Function: Yes Nausea/Vomiting: No Temp > 96.8F: Yes Pain Manageable: Yes Adequeate Hydration: Yes Anesthesia Complications: No Block Receding Appropriately: Yes Patient on Ventilator: No
[2021-07-01] MEDS: KETOROLAC 30 MG/1 ML INJ IV SCH ×3 (10:48→21:00)
[2021-07-01 14:50] LABS: Hematocrit 29.9 % (30.3-42.9); Hemoglobin 9.6 gm/dl (10.1-14.3)
[2021-07-01] MEDS ORDERED: MORPHINE 2 MG/1 ML INJ IM PRN (22:10)
[2021-07-01] MEDS: oxyCODONE /ACETAMINOPHEN 5-325MG TAB PO PRN (22:22)
[2021-07-02] MEDS: oxyCODONE /ACETAMINOPHEN 5-325MG TAB PO PRN ×4 (03:30→22:46)
[2021-07-02] MEDS: IBUPROFEN 800 MG TAB PO PRN ×3 (05:38→18:36)
--- NOTE | 2021-07-02 10:37 | Progress Note ---
Assessment and Plan A: POD #1 Asymptomatic Anemia P: Follow Routine PostOp Orders FeSo4 PO 1XD Encourage increased ambulation PUI (refused Covid testing) Subjective - Subjective Date of service: 07/02/21 Interval history: Early entry to care, course complicated by N&V, non-compliance with visits, and a Hx of Cocaine, THC, and Tobacco Use, Co-managed with [facility]. Patient reports: appetite normal, voiding normally, pain well controlled, ambulating normally, other (Refused Covid testing) : doing well, bottle feeding Objective - Vital Signs Latest vital signs: Vital Signs Temp Pulse Resp BP BP Pulse Ox Pulse Ox 07/02/21 06:30 99 07/02/21 05:38 18 100 07/02/21 04:30 100 07/02/21 03:30 18 99 07/02/21 00:47 99 07/02/21 00:17 99 07/01/21 23:20 100 07/01/21 22:22 98.0 F 69 18 101/52 100 100 07/01/21 19:50 100 07/01/21 19:05 97.8 F 87 17 115/69 98 07/01/21 16:32 97.8 F 80 17 120/60 99 07/01/21 12:00 98.4 F 75 16 127/68 Intake and Output 07/01/21 07/02/21 07/02/21 22:59 06:59 14:59 Intake Total 200 Output Total 300 Balance -100 Intake: Oral 200 Output: Urine 300 Void 300 Other: Total, Intake Amount 200 Total, Output Amount 300 - Exam Breasts: Present: normal Cardiovascular: Present: Regular rate Lungs: Present: Clear to auscultation, Normal air movement Abdomen: Present: normal appearance, soft, normal bowel sounds Uterus: Present: normal, firm, fundal height at umbilicus Extremities: Present: normal Incision: Present: dry, dressed - Labs Labs: Abnormal lab results 07/01/21 Range/Units 14:26 Hgb 9.6 L (10.1-14.3) gm/dl Hct 29.9 L (30.3-42.9) %
[2021-07-02] MEDS: FERROUS SULFATE 300 MG (60MG Elemental Iron) / 5 mL ORAL LIQD PO SCH (11:06)
[2021-07-02] MEDS: SIMETHICONE 80 MG CHEW TAB PO PRN (18:36)
[2021-07-03] MEDS: SIMETHICONE 80 MG CHEW TAB PO PRN (00:46)
[2021-07-03] MEDS: IBUPROFEN 800 MG TAB PO PRN ×2 (00:46→10:45)
[2021-07-03] MEDS: oxyCODONE /ACETAMINOPHEN 5-325MG TAB PO PRN (05:21)
[2021-07-03 08:21] VITALS: BP 112/61
[2021-07-03] MEDS: FERROUS SULFATE 300 MG (60MG Elemental Iron) / 5 mL ORAL LIQD PO SCH (10:45)
--- NOTE | 2021-07-03 15:47 | Discharge Summary ---
Providers - Providers Date of Admission: 07/01/21 01:35 Date of discharge: 07/03/21 Attending physician: GIOVANI PEÑA JR, MD 07/01/21 02:41 Consult to Case Management [CONS] Routine Services Needed at Discharge: Film Color Tester Notified:: case management Comment:: + MJ on Utox, hx PSA, now Primary care physician: GIOVANI PEÑA JR, MD Hospitalization Reason for admission: active labor, IUP at term Delivery: Procedure: primary low transverse Episiotomy: none Laceration: none Incision: normal, dry, intact Other procedures: none complications: none Discharge diagnosis: IUP at term delivered [place] baby: male Hospital course: Pt was admitted to [facility] in labor. She had a primary LTCS r/t NRFHT and no pp complications. See H&P, delivery summary, and pp notes. Condition at discharge: Stable Disposition: 01 HOME / SELF CARE / HOMELESS Plan - Discharge Medications Prescriptions: Ibuprofen [Motrin 800 MG tab] 800 mg PO Q6H PRN #30 tablet PRN Reason: Pain, Mild (1-3) oxyCODONE /ACETAMINOPHEN [Percocet 5/325 mg] 1 tab PO Q6H PRN #30 tablet PRN Reason: Pain, Moderate (4-6) - Provider Discharge Summary Activity: routine, no sex for 6 weeks, no heavy lifting 4 weeks, no strenuous exercise Diet: routine Instructions: routine Additional instructions: [] Smoking cessation referral if applicable(refer to patient education folder for contact #) [] Refer to [facility] Book[facility] Call your doctor immediately for: * Fever > 100.5 * Heavy vaginal bleeding ( >1 pad per hour) * Severe persistent headache * Shortness of breath * Reddened, hot, painful area to leg or breast * Drainage or odor from incision. * Keep incision clean and dry at all times and follow doctor's instructions regarding bathing/showering - Follow up plan Follow up: GIOVANI PEÑA JR, MD [Primary Care Provider] - 14 Days
== END 2021-07-03 16:45 | disposition home or self-care (01) | DRG 765 ==
LOC: TRG 09:16 → LD 09:16 → APU 09:18 → LD 07-01 01:35 → TRG 07-01 01:35 → OB 07-01 04:41
PROVIDERS: ADMIT Obstetrics & Gynecology; ATTEND Obstetrics & Gynecology
PROC: 10D00Z1 Extraction of Products of Conception, Low, Open Approach (ICD-10-PCS; principal; 2021-07-01)
DX: O76 Abnormality in fetal heart rate and rhythm complicating labor and delivery (principal); O99.324 Drug use complicating childbirth; F12.90 Cannabis use, unspecified, uncomplicated; Z3A.39 39 weeks gestation of pregnancy; Z37.0 Single live birth; O99.214 Obesity complicating childbirth; E66.9 Obesity, unspecified; D64.9 Anemia, unspecified; O90.81 Anemia of the puerperium
CPT/HCPCS: 36415; 80307; 85014; 85018; 85027; 86592; 86850; 86900; 86901; G0378; J0690; J1100; J1170; J1885; J2270; J2370; J2405; J2590; J2765; J7120